=== PATIENT | male | born 1960 | race Caucasian/White ===

== ENCOUNTER 2019-03-03 22:11 | Inpatient (IN) ==
[2019-03-04] MEDS ORDERED: *HR* Dextrose 50 % in Water (Syg) 50 ML SYRINGE IVP PRN ×2 (01:23→14:20)
[2019-03-04] MEDS ORDERED: D5% in Water 1,000 ML IVC PRN ×2 (01:23→14:20)
[2019-03-04] MEDS ORDERED: Dextrose Gel 15 GM/37.5 ML TUBE PO PRN ×4 (01:23→14:20)
[2019-03-04] MEDS ORDERED: Naloxone 0.4 MG/ML INJ IVP PRN ×4 (01:23→14:20)
[2019-03-04] MEDS ORDERED: Ringers Solution, Lactated 1,000 ML IVC SCH (01:30)
[2019-03-04 02:16] LABS: Basophils # 0.1 K/mcL (0.0-0.2); Basophils % 0.4 %; Eosinophils # 0.3 K/mcL (0.0-0.6); Eosinophils % 2.5 %; Hematocrit 50.4 % (37.5-50.1); Hemoglobin 16.7 g/dL (12.9-16.9); Immature Granulocytes % 0.4 % (0-4); Lymphocytes # 2.2 K/mcL (0.6-4.6); Lymphocytes % 19.6 %; Mean Corpuscular HGB Conc 33.1 g/dL (31.6-35.5); Mean Corpuscular Hemoglobin 31.3 pg (28.0-33.3); Mean Corpuscular Volume 94.4 fL (83.0-100.0); Mean Platelet Volume 11.1 fL (9.4-12.4); Monocytes # 0.9 K/mcL (0.0-1.3); Monocytes % 8.1 %; Neutrophils # 7.8 K/mcL (1.6-8.9); Platelet Count 253 K/mcL (140-400); Red Blood Count 5.34 M/mcL (4.19-5.50); Red Cell Distribution Width 12.2 % (11.5-14.5); White Blood Count 11.3 K/mcL (4.3-11.1)
[2019-03-04 02:30] LABS: INR 1.2; Prothrombin Time 13.4 Seconds (9.4-12.1)
[2019-03-04 02:32] LABS: Bilirubin,Urine Negative (Negative); Blood,Urine Negative (Negative); Clarity,Urine Clear (Clear); Color,Urine Yellow (Yellow); Glucose,Urine (UA) 250 mg/dL (Normal); Ketones,Urine Negative (Negative); Leukocyte Esterase,Urine Negative (Negative); Nitrite,Urine Negative (Negative); Protein,Urine Trace mg/dL (Neg-Trace); Specific Gravity,Urine 1.015 (1.010-1.025); Urobilinogen,Urine Normal (Normal)
[2019-03-04 02:35] LABS: C-Reactive Protein 55 mg/L (Less than 10)
[2019-03-04 02:36] LABS: Troponin I < 0.03 ng/mL (< 0.04)
[2019-03-04 02:37] LABS: Alanine Aminotransferase 8 Units/L (7-52); Albumin 3.5 g/dL (3.5-5.7); Alkaline Phosphatase 59 Units/L (34-104); Aspartate Amino Transferase 7 Units/L (13-39); BUN/Creatinine Ratio 18 (6-26); Bilirubin,Total 0.5 mg/dL (0.3-1.0); Blood Urea Nitrogen 10 mg/dL (6-20); Calcium 8.9 mg/dL (8.6-10.3); Carbon Dioxide 21 mEq/L (23-29); Chloride 104 mEq/L (98-107); Chol/HDL Ratio 4.8 (0-4.9); Cholesterol 116 mg/dL (< 200); Globulin 3.4 g/dL (2.4-3.5); Glucose 160 mg/dL (70-105); HDL Cholesterol 24 mg/dL (40-59); LDL Cholesterol,Calculated 73 mg/dL (0-99); Magnesium 1.9 mg/dL (1.6-2.6); Osmolality,Calculated 274 (280-300); Potassium 4.3 mEq/L (3.5-5.1); Sodium 131 mEq/L (136-145); Total Protein 6.9 g/dL (6.4-8.9); Triglycerides 94 mg/dL (< 150); eGFR For African Americans > 60 (> 60); eGFR For Non-African Americans > 60 (> 60)
[2019-03-04] MEDS: *HR* Heparin 5,000 UNIT/ML VIAL SQ SCH ×2 (06:36→20:58)
[2019-03-04] MEDS: Piperacillin/Tazobactam 3.375 GM in 0.9 % Sodium Chloride Mini Bag 100 ML IVPB SCH ×2 (06:36→20:59)
[2019-03-04] MEDS: Insulin LISPRO 300 UNITS/3 ML VIAL SQ SCH ×3 (06:37→17:02)
[2019-03-04 07:09] LABS: Estimated Average Glucose 232 mg/dl
[2019-03-04] MEDS ORDERED: D5% in Lactated Ringers 1,000 ML IVC SCH ×2 (08:00→14:20)
[2019-03-04] MEDS ORDERED: Ondansetron 4 MG/2 ML VIAL IVP PRN ×2 (08:43→14:20)
[2019-03-04] MEDS ORDERED: Ondansetron 4 MG/2 ML VIAL ONE (08:54)
[2019-03-04] MEDS ORDERED: Morphine Sulfate 2 MG/ML SYRINGE IVP PRN ×2 (12:09→14:20)
[2019-03-04] MEDS ORDERED: *HR* HYDROcodone/Acet 5/325 mg TABLET PO PRN ×2 (12:09→14:20)
[2019-03-04] MEDS ORDERED: Lidocaine -MPF 2% 2 ML VIAL ONE (12:15)
[2019-03-04] MEDS ORDERED: *HR* Midazolam HCl 2 MG/2 ML VIAL ONE (12:16)
[2019-03-04] MEDS ORDERED: *HR* Propofol 200 MG/20 ML VIAL IVP ONE (12:16)
[2019-03-04] MEDS ORDERED: *HR* FentaNYL (PF) 100 MCG/2 ML VIAL ONE (12:16)
[2019-03-04] MEDS ORDERED: Lidocaine 1% 20 ML MDV ONE (12:19)
[2019-03-04] MEDS ORDERED: *HR* PHENYLEPHRINE 1,000 MCG/10 ML SYRINGE IVP ONE (13:21)
[2019-03-04] MEDS ORDERED: *HR* Labetalol 20 MG/4 ML SYRINGE IVP PRN (15:30)
[2019-03-04] MEDS ORDERED: Insulin LISPRO 300 UNITS/3 ML VIAL SQ SCH (18:00)
[2019-03-04] MEDS: Insulin DETEMIR 100 UNIT/ML X5UNITS SQ SCH (20:58)
[2019-03-05 05:35] LABS: Basophils % 0.2 %; Hematocrit 50.3 % (37.5-50.1); Hemoglobin 16.9 g/dL (12.9-16.9); Immature Granulocytes % 0.5 % (0-4); Lymphocytes # 1.6 K/mcL (0.6-4.6); Lymphocytes % 9.4 %; Mean Corpuscular HGB Conc 33.6 g/dL (31.6-35.5); Mean Corpuscular Hemoglobin 31.2 pg (28.0-33.3); Mean Platelet Volume 10.8 fL (9.4-12.4); Monocytes # 1.1 K/mcL (0.0-1.3); Monocytes % 6.4 %; Neutrophils # 13.7 K/mcL (1.6-8.9); Platelet Count 306 K/mcL (140-400); Red Blood Count 5.41 M/mcL (4.19-5.50); Red Cell Distribution Width 12.2 % (11.5-14.5); Segmented Neutrophils % 83.5 %; White Blood Count 16.4 K/mcL (4.3-11.1)
[2019-03-05] MEDS: Piperacillin/Tazobactam 3.375 GM in 0.9 % Sodium Chloride Mini Bag 100 ML IVPB SCH ×3 (05:37→22:45)
[2019-03-05] MEDS: *HR* Heparin 5,000 UNIT/ML VIAL SQ SCH ×3 (05:37→21:22)
[2019-03-05 05:51] LABS: BUN/Creatinine Ratio 13 (6-26); Blood Urea Nitrogen 8 mg/dL (6-20); Calcium 9.7 mg/dL (8.6-10.3); Carbon Dioxide 26 mEq/L (23-29); Chloride 97 mEq/L (98-107); Glucose 142 mg/dL (70-105); Osmolality,Calculated 277 (280-300); Potassium 4.3 mEq/L (3.5-5.1); Sodium 133 mEq/L (136-145); eGFR For African Americans > 60 (> 60); eGFR For Non-African Americans > 60 (> 60)
[2019-03-05] MEDS: Insulin LISPRO 300 UNITS/3 ML VIAL SQ SCH ×3 (07:51→17:30)
[2019-03-05] MEDS ORDERED: Aminoglycoside Consult 1 EACH MC ONE (08:33)
[2019-03-05] MEDS: Gabapentin 300 MG CAPSULE PO SCH ×2 (15:35→21:22)
[2019-03-05] MEDS: Insulin DETEMIR 100 UNIT/ML X5UNITS SQ SCH (21:22)
[2019-03-06 05:19] LABS: Basophils # 0.1 K/mcL (0.0-0.2); Basophils % 0.7 %; Eosinophils # 0.1 K/mcL (0.0-0.6); Eosinophils % 1.4 %; Hematocrit 50.8 % (37.5-50.1); Hemoglobin 17.4 g/dL (12.9-16.9); Immature Granulocytes % 0.5 % (0-4); Lymphocytes # 2.4 K/mcL (0.6-4.6); Lymphocytes % 23.1 %; Mean Corpuscular HGB Conc 34.3 g/dL (31.6-35.5); Mean Corpuscular Hemoglobin 31.6 pg (28.0-33.3); Mean Corpuscular Volume 92.2 fL (83.0-100.0); Mean Platelet Volume 11.3 fL (9.4-12.4); Monocytes % 9.8 %; Neutrophils # 6.7 K/mcL (1.6-8.9); Platelet Count 312 K/mcL (140-400); Red Blood Count 5.51 M/mcL (4.19-5.50); Red Cell Distribution Width 12.2 % (11.5-14.5); Segmented Neutrophils % 64.5 %; White Blood Count 10.3 K/mcL (4.3-11.1)
[2019-03-06 05:32] LABS: BUN/Creatinine Ratio 15 (6-26); Blood Urea Nitrogen 11 mg/dL (6-20); Calcium 9.4 mg/dL (8.6-10.3); Carbon Dioxide 28 mEq/L (23-29); Chloride 98 mEq/L (98-107); Glucose 77 mg/dL (70-105); Osmolality,Calculated 276 (280-300); Phosphorous 3.4 mg/dL (2.7-4.5); Potassium 3.7 mEq/L (3.5-5.1); Sodium 134 mEq/L (136-145); eGFR For African Americans > 60 (> 60); eGFR For Non-African Americans > 60 (> 60)
[2019-03-06] MEDS: Piperacillin/Tazobactam 3.375 GM in 0.9 % Sodium Chloride Mini Bag 100 ML IVPB SCH ×3 (06:21→22:18)
[2019-03-06] MEDS: *HR* Heparin 5,000 UNIT/ML VIAL SQ SCH ×3 (06:22→22:13)
[2019-03-06] MEDS: Aspirin Enteric Coated 81 MG Tablet PO SCH (08:51)
[2019-03-06] MEDS: Gabapentin 300 MG CAPSULE PO SCH ×3 (08:51→20:19)
[2019-03-06] MEDS: Insulin LISPRO 300 UNITS/3 ML VIAL SQ SCH ×3 (09:02→17:38)
[2019-03-06] MEDS ORDERED: *HR* Labetalol 20 MG/4 ML SYRINGE IVP PRN (09:38)
[2019-03-06] MEDS ORDERED: Isovue-370 500 ML BOTTLE IVP ONE (15:44)
[2019-03-06] MEDS: Insulin DETEMIR 100 UNIT/ML X5UNITS SQ SCH (22:13)
[2019-03-07] MEDS ORDERED: Acetaminophen IV 500 MG/50 ML INFUS..BTL IVPB ONE ×2 (00:22→20:08)
[2019-03-07] MEDS: Piperacillin/Tazobactam 3.375 GM in 0.9 % Sodium Chloride Mini Bag 100 ML IVPB SCH ×4 (05:47→22:41)
[2019-03-07] MEDS: *HR* Heparin 5,000 UNIT/ML VIAL SQ SCH ×4 (05:51→21:30)
[2019-03-07] MEDS: Aspirin Enteric Coated 81 MG Tablet PO SCH (08:34)
[2019-03-07] MEDS: Gabapentin 300 MG CAPSULE PO SCH ×3 (08:34→19:56)
[2019-03-07] MEDS: Insulin LISPRO 300 UNITS/3 ML VIAL SQ SCH ×3 (08:35→17:11)
[2019-03-07] MEDS: *HR* FentaNYL PATCH 25 MCG PATCH TD SCH (09:44)
[2019-03-07] MEDS: Acetaminophen 325 MG TABLET PO PRN ×2 (12:26→18:36)
[2019-03-07] MEDS: Insulin DETEMIR 100 UNIT/ML X5UNITS SQ SCH (19:57)
[2019-03-08] MEDS ORDERED: Acetaminophen IV 500 MG/50 ML INFUS..BTL IVPB ONE (03:18)
[2019-03-08 05:18] LABS: Basophils # 0.1 K/mcL (0.0-0.2); Basophils % 0.8 %; Eosinophils # 0.5 K/mcL (0.0-0.6); Eosinophils % 4.4 %; Hematocrit 46.3 % (37.5-50.1); Hemoglobin 15.9 g/dL (12.9-16.9); Immature Granulocytes % 0.6 % (0-4); Lymphocytes # 2.3 K/mcL (0.6-4.6); Lymphocytes % 20.4 %; Mean Corpuscular HGB Conc 34.3 g/dL (31.6-35.5); Mean Corpuscular Hemoglobin 31.3 pg (28.0-33.3); Mean Corpuscular Volume 91.1 fL (83.0-100.0); Mean Platelet Volume 10.9 fL (9.4-12.4); Monocytes # 1.2 K/mcL (0.0-1.3); Monocytes % 10.8 %; Neutrophils # 7.1 K/mcL (1.6-8.9); Platelet Count 296 K/mcL (140-400); Red Blood Count 5.08 M/mcL (4.19-5.50); Red Cell Distribution Width 12.4 % (11.5-14.5); White Blood Count 11.3 K/mcL (4.3-11.1)
[2019-03-08 05:40] LABS: BUN/Creatinine Ratio 17 (6-26); Blood Urea Nitrogen 12 mg/dL (6-20); Calcium 9.3 mg/dL (8.6-10.3); Carbon Dioxide 22 mEq/L (23-29); Chloride 100 mEq/L (98-107); Glucose 149 mg/dL (70-105); Magnesium 2.1 mg/dL (1.6-2.6); Osmolality,Calculated 273 (280-300); Phosphorous 3.3 mg/dL (2.7-4.5); Potassium 4.7 mEq/L (3.5-5.1); Sodium 130 mEq/L (136-145); eGFR For African Americans > 60 (> 60); eGFR For Non-African Americans > 60 (> 60)
[2019-03-08] MEDS: *HR* Heparin 5,000 UNIT/ML VIAL SQ SCH ×3 (05:57→21:55)
[2019-03-08] MEDS: Piperacillin/Tazobactam 3.375 GM in 0.9 % Sodium Chloride Mini Bag 100 ML IVPB SCH (05:58)
[2019-03-08] MEDS: Insulin LISPRO 300 UNITS/3 ML VIAL SQ SCH ×3 (07:56→16:35)
[2019-03-08] MEDS: Gabapentin 300 MG CAPSULE PO SCH ×3 (08:06→21:55)
[2019-03-08] MEDS: Aspirin Enteric Coated 81 MG Tablet PO SCH (08:06)
[2019-03-08 12:58] LABS: Albumin 3.8 g/dL (3.5-5.7); Albumin/Globulin Ratio 1.2 (1.1-2.2); Bilirubin,Direct 0.1 mg/dL (0.0-0.2); Bilirubin,Indirect 0.4 mg/dL (0.0-1.2); Bilirubin,Total 0.5 mg/dL (0.3-1.0); Globulin 3.3 g/dL (2.4-3.5); Total Protein 7.1 g/dL (6.4-8.9)
[2019-03-08] MEDS: Acetaminophen IV 1,000 MG/100 ML INFUS..BTL IVPB PRN (14:53)
[2019-03-08] MEDS: cefTRIAXone 2,000 MG in 0.9 % Sodium Chloride Mini Bag 100 ML IVPB SCH (16:33)
[2019-03-08] MEDS: metroNIDAZOLE 500 MG TABLET PO SCH (21:55)
[2019-03-08] MEDS: Insulin DETEMIR 100 UNIT/ML X5UNITS SQ SCH (21:56)
[2019-03-09] MEDS: *HR* Heparin 5,000 UNIT/ML VIAL SQ SCH ×3 (05:07→20:58)
[2019-03-09 05:50] LABS: Basophils # 0.1 K/mcL (0.0-0.2); Basophils % 0.5 %; Eosinophils # 0.4 K/mcL (0.0-0.6); Eosinophils % 3.7 %; Hematocrit 49.1 % (37.5-50.1); Hemoglobin 16.1 g/dL (12.9-16.9); Immature Granulocytes % 0.5 % (0-4); Lymphocytes # 1.8 K/mcL (0.6-4.6); Lymphocytes % 16.2 %; Mean Corpuscular HGB Conc 32.8 g/dL (31.6-35.5); Mean Corpuscular Hemoglobin 30.8 pg (28.0-33.3); Mean Corpuscular Volume 94.1 fL (83.0-100.0); Mean Platelet Volume 10.8 fL (9.4-12.4); Monocytes # 1.1 K/mcL (0.0-1.3); Monocytes % 10.3 %; Neutrophils # 7.6 K/mcL (1.6-8.9); Platelet Count 303 K/mcL (140-400); Red Blood Count 5.22 M/mcL (4.19-5.50); Red Cell Distribution Width 12.3 % (11.5-14.5); Segmented Neutrophils % 68.8 %; White Blood Count 11.1 K/mcL (4.3-11.1)
[2019-03-09 06:10] LABS: BUN/Creatinine Ratio 12 (6-26); Blood Urea Nitrogen 8 mg/dL (6-20); Calcium 9.7 mg/dL (8.6-10.3); Carbon Dioxide 26 mEq/L (23-29); Chloride 99 mEq/L (98-107); Glucose 186 mg/dL (70-105); Magnesium 2.1 mg/dL (1.6-2.6); Osmolality,Calculated 283 (280-300); Phosphorous 3.2 mg/dL (2.7-4.5); Potassium 4.5 mEq/L (3.5-5.1); Sodium 135 mEq/L (136-145); eGFR For African Americans > 60 (> 60); eGFR For Non-African Americans > 60 (> 60)
[2019-03-09] MEDS: Gabapentin 300 MG CAPSULE PO SCH ×3 (09:16→20:58)
[2019-03-09] MEDS: metroNIDAZOLE 500 MG TABLET PO SCH ×3 (09:16→20:57)
[2019-03-09] MEDS: Aspirin Enteric Coated 81 MG Tablet PO SCH (09:16)
[2019-03-09] MEDS: *HR* LORazepam 2 MG/ML VIAL IVP PRN (10:27)
[2019-03-09] MEDS: Insulin LISPRO 300 UNITS/3 ML VIAL SQ SCH ×3 (13:06→17:12)
[2019-03-09] MEDS: Acetaminophen IV 1,000 MG/100 ML INFUS..BTL IVPB PRN (14:59)
[2019-03-09] MEDS: cefTRIAXone 2,000 MG in 0.9 % Sodium Chloride Mini Bag 100 ML IVPB SCH (16:36)
[2019-03-09] MEDS: Insulin DETEMIR 100 UNIT/ML X5UNITS SQ SCH (20:57)
[2019-03-10] MEDS: Acetaminophen IV 1,000 MG/100 ML INFUS..BTL IVPB PRN ×2 (02:19→14:49)
[2019-03-10] MEDS: *HR* LORazepam 2 MG/ML VIAL IVP PRN (02:19)
[2019-03-10 02:46] LABS: Basophils # 0.1 K/mcL (0.0-0.2); Basophils % 0.6 %; Eosinophils # 0.6 K/mcL (0.0-0.6); Eosinophils % 4.9 %; Hematocrit 46.7 % (37.5-50.1); Hemoglobin 15.5 g/dL (12.9-16.9); Immature Granulocytes % 0.4 % (0-4); Lymphocytes # 2.1 K/mcL (0.6-4.6); Lymphocytes % 18.4 %; Mean Corpuscular HGB Conc 33.2 g/dL (31.6-35.5); Mean Corpuscular Hemoglobin 30.8 pg (28.0-33.3); Mean Corpuscular Volume 92.8 fL (83.0-100.0); Mean Platelet Volume 10.8 fL (9.4-12.4); Monocytes # 1.2 K/mcL (0.0-1.3); Monocytes % 10.5 %; Neutrophils # 7.6 K/mcL (1.6-8.9); Platelet Count 288 K/mcL (140-400); Red Blood Count 5.03 M/mcL (4.19-5.50); Red Cell Distribution Width 12.5 % (11.5-14.5); Segmented Neutrophils % 65.2 %; White Blood Count 11.6 K/mcL (4.3-11.1)
[2019-03-10 03:02] LABS: BUN/Creatinine Ratio 14 (6-26); Blood Urea Nitrogen 12 mg/dL (6-20); Calcium 9.3 mg/dL (8.6-10.3); Carbon Dioxide 23 mEq/L (23-29); Chloride 98 mEq/L (98-107); Glucose 338 mg/dL (70-105); Osmolality,Calculated 283 (280-300); Phosphorous 3.2 mg/dL (2.7-4.5); Potassium 4.3 mEq/L (3.5-5.1); Sodium 130 mEq/L (136-145); eGFR For African Americans > 60 (> 60); eGFR For Non-African Americans > 60 (> 60)
[2019-03-10] MEDS: Insulin LISPRO 300 UNITS/3 ML VIAL SQ SCH ×4 (06:40→21:32)
[2019-03-10] MEDS: *HR* Heparin 5,000 UNIT/ML VIAL SQ SCH ×3 (06:40→21:42)
[2019-03-10] MEDS: Gabapentin 300 MG CAPSULE PO SCH ×3 (08:51→21:42)
[2019-03-10] MEDS: Aspirin Enteric Coated 81 MG Tablet PO SCH (08:51)
[2019-03-10] MEDS ORDERED: Heparin 1,000 UNITS/500 mL 0 ML ONE (08:54)
[2019-03-10] MEDS ORDERED: Isovue-300 150 ML INFUS..BTL ONE (08:54)
[2019-03-10] MEDS ORDERED: *HR* Heparin 10,000 UNIT/10 ML VIAL ONE (08:54)
[2019-03-10] MEDS: metroNIDAZOLE 500 MG TABLET PO SCH ×3 (08:55→21:42)
[2019-03-10] MEDS ORDERED: 0.9 % Sodium Chloride 1,000 ML ONE ×2 (08:55→09:18)
[2019-03-10] MEDS ORDERED: *HR* Midazolam HCl 2 MG/2 ML VIAL ONE (09:18)
[2019-03-10] MEDS: *HR* FentaNYL PATCH 25 MCG PATCH TD SCH (14:50)
[2019-03-10] MEDS: cefTRIAXone 2,000 MG in 0.9 % Sodium Chloride Mini Bag 100 ML IVPB SCH (17:36)
[2019-03-10] MEDS: Insulin DETEMIR 100 UNIT/ML X5UNITS SQ SCH (21:52)
[2019-03-11] MEDS: Acetaminophen IV 1,000 MG/100 ML INFUS..BTL IVPB PRN ×2 (00:08→10:02)
[2019-03-11] MEDS: *HR* Heparin 5,000 UNIT/ML VIAL SQ SCH ×3 (05:09→21:43)
[2019-03-11] MEDS: Gabapentin 300 MG CAPSULE PO SCH ×3 (08:55→21:43)
[2019-03-11] MEDS: metroNIDAZOLE 500 MG TABLET PO SCH (08:55)
[2019-03-11] MEDS: Aspirin Enteric Coated 81 MG Tablet PO SCH (08:55)
[2019-03-11] MEDS: Insulin LISPRO 300 UNITS/3 ML VIAL SQ SCH ×4 (08:56→21:47)
[2019-03-11] MEDS: cefTRIAXone 2,000 MG in 0.9 % Sodium Chloride Mini Bag 100 ML IVPB SCH (16:24)
[2019-03-11] MEDS: Insulin DETEMIR 100 UNIT/ML X5UNITS SQ SCH (21:48)
[2019-03-12 05:01] LABS: Hematocrit 45.9 % (37.5-50.1); Hemoglobin 15.5 g/dL (12.9-16.9); Mean Corpuscular HGB Conc 33.8 g/dL (31.6-35.5); Mean Corpuscular Hemoglobin 30.9 pg (28.0-33.3); Mean Corpuscular Volume 91.6 fL (83.0-100.0); Mean Platelet Volume 10.4 fL (9.4-12.4); Platelet Count 295 K/mcL (140-400); Red Blood Count 5.01 M/mcL (4.19-5.50); Red Cell Distribution Width 12.7 % (11.5-14.5); White Blood Count 12.6 K/mcL (4.3-11.1)
[2019-03-12] MEDS: *HR* Heparin 5,000 UNIT/ML VIAL SQ SCH ×3 (05:11→19:40)
[2019-03-12 05:21] LABS: BUN/Creatinine Ratio 15 (6-26); Blood Urea Nitrogen 10 mg/dL (6-20); Calcium 9.4 mg/dL (8.6-10.3); Carbon Dioxide 26 mEq/L (23-29); Chloride 100 mEq/L (98-107); Glucose 150 mg/dL (70-105); Osmolality,Calculated 276 (280-300); Potassium 4.2 mEq/L (3.5-5.1); Sodium 132 mEq/L (136-145); eGFR For African Americans > 60 (> 60); eGFR For Non-African Americans > 60 (> 60)
[2019-03-12] MEDS: Insulin LISPRO 300 UNITS/3 ML VIAL SQ SCH ×4 (08:53→19:43)
[2019-03-12] MEDS: Aspirin Enteric Coated 81 MG Tablet PO SCH (08:55)
[2019-03-12] MEDS: Gabapentin 300 MG CAPSULE PO SCH ×3 (08:55→19:39)
[2019-03-12] MEDS ORDERED: Vancomycin 1,000 MG, Sodium Chloride IRRigation 1,000 ML IR ONE ×2 (11:00→19:00)
[2019-03-12] MEDS: cefTRIAXone 2,000 MG in 0.9 % Sodium Chloride Mini Bag 100 ML IVPB SCH (16:25)
[2019-03-12] MEDS: Insulin DETEMIR 100 UNIT/ML X5UNITS SQ SCH (19:45)
[2019-03-12] MEDS ORDERED: Tetracaine/PF 20 MG/2 ML AMPUL ONE (20:49)
[2019-03-12] MEDS ORDERED: Ropivacaine/PF 0.5% 30 ML VIAL ONE (20:49)
[2019-03-12] MEDS ORDERED: Metoclopramide 10 MG/2 ML VIAL ONE (20:49)
[2019-03-12] MEDS ORDERED: Famotidine 20 MG/2 ML VIAL ONE (20:49)
[2019-03-12] MEDS ORDERED: *HR* Midazolam HCl 5 MG/5 ML VIAL IVP ONE (20:50)
[2019-03-12] MEDS ORDERED: Lidocaine -MPF 4% 5 ML AMPUL ONE (20:50)
[2019-03-12] MEDS ORDERED: *HR* FentaNYL (PF) 100 MCG/2 ML VIAL ONE (20:51)
[2019-03-12] MEDS ORDERED: Ondansetron 4 MG/2 ML VIAL ONE (21:54)
[2019-03-12] MEDS ORDERED: *HR* EPINEPHrine 1 MG/10 ML SYRINGE ONE (21:56)
[2019-03-12] MEDS ORDERED: Ringers Solution, Lactated 1,000 ML ONE (23:05)
[2019-03-12] MEDS ORDERED: *HR* Labetalol 20 MG/4 ML SYRINGE IVP PRN (23:26)
[2019-03-12] MEDS ORDERED: *HR* HYDROcodone/Acet 5/325 mg TABLET PO PRN ×2 (23:26)
[2019-03-12] MEDS ORDERED: *HR* Dextrose 50 % in Water (Syg) 50 ML SYRINGE IVP PRN (23:26)
[2019-03-12] MEDS ORDERED: Ondansetron 4 MG/2 ML VIAL IVP PRN (23:26)
[2019-03-12] MEDS ORDERED: D5% in Water 1,000 ML IVC PRN (23:26)
[2019-03-12] MEDS ORDERED: Naloxone 0.4 MG/ML INJ IVP PRN (23:26)
[2019-03-12] MEDS ORDERED: *HR* OxyCODONE Immed Rel 5 MG TABLET PO PRN ×2 (23:26)
[2019-03-12] MEDS ORDERED: Dextrose Gel 15 GM/37.5 ML TUBE PO PRN ×2 (23:26)
[2019-03-12] MEDS ORDERED: *HR* LORazepam 2 MG/ML VIAL IVP PRN (23:26)
[2019-03-12] MEDS ORDERED: Acetaminophen 325 MG TABLET PO PRN ×2 (23:26)
[2019-03-13 04:47] LABS: Hematocrit 41.6 % (37.5-50.1); Mean Corpuscular HGB Conc 32.5 g/dL (31.6-35.5); Mean Corpuscular Volume 95.6 fL (83.0-100.0); Mean Platelet Volume 10.6 fL (9.4-12.4); Platelet Count 253 K/mcL (140-400); Red Blood Count 4.35 M/mcL (4.19-5.50); Red Cell Distribution Width 12.8 % (11.5-14.5)
[2019-03-13 04:48] LABS: Hemoglobin 13.5 g/dL (12.9-16.9)
[2019-03-13 05:10] LABS: BUN/Creatinine Ratio 14 (6-26); Blood Urea Nitrogen 13 mg/dL (6-20); Calcium 8.9 mg/dL (8.6-10.3); Carbon Dioxide 26 mEq/L (23-29); Chloride 100 mEq/L (98-107); Glucose 330 mg/dL (70-105); Osmolality,Calculated 287 (280-300); Potassium 4.3 mEq/L (3.5-5.1); Sodium 132 mEq/L (136-145); eGFR For African Americans > 60 (> 60); eGFR For Non-African Americans > 60 (> 60)
[2019-03-13] MEDS: *HR* Heparin 5,000 UNIT/ML VIAL SQ SCH ×3 (05:48→23:32)
[2019-03-13] MEDS ORDERED: cefTRIAXone 2,000 MG in 0.9 % Sodium Chloride Mini Bag 100 ML IVPB SCH (16:00)
[2019-03-13] MEDS ORDERED: Insulin DETEMIR 100 UNIT/ML X5UNITS SQ SCH (21:00)
[2019-03-13] MEDS: Gabapentin 300 MG CAPSULE PO SCH ×2 (22:18→23:31)
[2019-03-13] MEDS: Insulin LISPRO 300 UNITS/3 ML VIAL SQ SCH ×2 (22:20→23:30)
[2019-03-13] MEDS: *HR* HYDROmorphone (PF) 1 MG/ML SYRINGE IVP PRN (22:57)
[2019-03-13] MEDS: Aspirin Enteric Coated 81 MG Tablet PO SCH (23:30)
[2019-03-13] MEDS: *HR* FentaNYL PATCH 25 MCG PATCH TD SCH (23:31)
[2019-03-14] MEDS: *HR* Heparin 5,000 UNIT/ML VIAL SQ SCH ×3 (05:57→21:57)
[2019-03-14] MEDS: Aspirin Enteric Coated 81 MG Tablet PO SCH (09:18)
[2019-03-14] MEDS: Gabapentin 300 MG CAPSULE PO SCH ×3 (09:18→21:57)
[2019-03-14] MEDS: Insulin LISPRO 300 UNITS/3 ML VIAL SQ SCH ×4 (09:22→22:01)
[2019-03-14] MEDS: Insulin DETEMIR 100 UNIT/ML X5UNITS SQ SCH (21:58)
[2019-03-14] MEDS: *HR* HYDROmorphone (PF) 1 MG/ML SYRINGE IVP PRN (23:31)
[2019-03-15] MEDS: *HR* Heparin 5,000 UNIT/ML VIAL SQ SCH ×3 (05:23→21:57)
[2019-03-15] MEDS: Gabapentin 300 MG CAPSULE PO SCH ×3 (08:31→21:56)
[2019-03-15] MEDS: Aspirin Enteric Coated 81 MG Tablet PO SCH (08:31)
[2019-03-15] MEDS: Insulin LISPRO 300 UNITS/3 ML VIAL SQ SCH ×4 (08:32→21:44)
[2019-03-15] MEDS: Insulin DETEMIR 100 UNIT/ML X5UNITS SQ SCH (21:57)
[2019-03-16] MEDS: *HR* Heparin 5,000 UNIT/ML VIAL SQ SCH ×3 (05:17→21:23)
[2019-03-16] MEDS: Insulin LISPRO 300 UNITS/3 ML VIAL SQ SCH ×4 (07:46→21:21)
[2019-03-16] MEDS: Gabapentin 300 MG CAPSULE PO SCH ×3 (07:50→19:57)
[2019-03-16] MEDS: *HR* FentaNYL PATCH 25 MCG PATCH TD SCH (07:51)
[2019-03-16] MEDS: Aspirin Enteric Coated 81 MG Tablet PO SCH (07:51)
[2019-03-16] MEDS: Insulin DETEMIR 100 UNIT/ML X5UNITS SQ SCH (21:23)
[2019-03-17] MEDS: *HR* Heparin 5,000 UNIT/ML VIAL SQ SCH ×2 (06:03→14:09)
[2019-03-17] MEDS: Insulin LISPRO 300 UNITS/3 ML VIAL SQ SCH ×2 (07:22→12:29)
[2019-03-17] MEDS: Gabapentin 300 MG CAPSULE PO SCH ×2 (09:12→14:08)
[2019-03-17] MEDS: Aspirin Enteric Coated 81 MG Tablet PO SCH (09:13)
[2019-03-17 16:22] VITALS: BP 134/71
== END 2019-03-17 17:39 | disposition home health service (06) | DRG 853 ==
LOC: 3NENU → SUATTDRO 03-04 01:23
PROVIDERS: ADMIT Internal Medicine; ATTEND Internal Medicine

== ENCOUNTER 2019-04-05 23:11 | Inpatient (IN) ==
[2019-04-06] MEDS ORDERED: *HR* Heparin 5,000 UNIT/ML VIAL IVP ONE (01:26)
[2019-04-06] MEDS ORDERED: *HR* Heparin 5,000 UNIT/ML VIAL IVP PRN ×2 (01:26)
[2019-04-06] MEDS ORDERED: Heparin 25,000 UNIT/250 ML D5W 25,000 UNIT/250 ML IV.SOLN IVC SCH (01:30)
[2019-04-06 02:03] LABS: Mean Platelet Volume 10.8 fL (9.4-12.4)
[2019-04-06 02:05] LABS: Hematocrit 37.9 % (37.5-50.1); Hemoglobin 13.3 g/dL (12.9-16.9); Mean Corpuscular HGB Conc 35.1 g/dL (31.6-35.5); Mean Corpuscular Hemoglobin 29.3 pg (28.0-33.3); Mean Corpuscular Volume 83.5 fL (83.0-100.0); Platelet Count 414 K/mcL (140-400); Red Blood Count 4.54 M/mcL (4.19-5.50)
[2019-04-06 02:07] LABS: White Blood Count 37.5 K/mcL (4.3-11.1)
[2019-04-06 02:12] LABS: INR 1.3; Prothrombin Time 14.2 Seconds (9.4-12.1)
[2019-04-06 02:14] LABS: Heparin anti-factor XA UFH 1.09 IU/mL (0.30-0.70)
[2019-04-06] MEDS ORDERED: Aminoglycoside Consult 1 EACH MC ONE (02:16)
[2019-04-06 02:23] LABS: Calcium 8.8 mg/dL (8.6-10.3); Potassium 5.4 mEq/L (3.5-5.1)
[2019-04-06] MEDS ORDERED: Naloxone 0.4 MG/ML INJ IVP PRN (02:42)
[2019-04-06] MEDS ORDERED: Dextrose Gel 15 GM/37.5 ML TUBE PO PRN ×2 (02:47)
[2019-04-06] MEDS ORDERED: D5% in Water 1,000 ML IVC PRN (02:47)
[2019-04-06] MEDS ORDERED: *HR* Dextrose 50 % in Water (Syg) 50 ML SYRINGE IVP PRN (02:47)
[2019-04-06 04:01] LABS: Calcium 8.7 mg/dL (8.6-10.3); Potassium 5.3 mEq/L (3.5-5.1)
[2019-04-06] MEDS ORDERED: 0.9 % Sodium Chloride 1,000 ML IVC ONE (05:36)
[2019-04-06] MEDS ORDERED: Insulin LISPRO 300 UNITS/3 ML VIAL SQ SCH (06:00)
[2019-04-06] MEDS ORDERED: Piperacillin/Tazobactam 3.375 GM in 0.9 % Sodium Chloride Mini Bag 100 ML IVPB SCH (06:00)
[2019-04-06 07:19] LABS: Calcium 8.5 mg/dL (8.6-10.3)
[2019-04-06 09:51] LABS: Uric Acid 16.2 mg/dL (2.3-7.6)
[2019-04-06] MEDS: Insulin LISPRO 300 UNITS/3 ML VIAL SQ SCH ×2 (10:22→12:28)
[2019-04-06 12:34] LABS: Bilirubin,Urine Moderate (Negative); Blood,Urine Large (Negative); Clarity,Urine Cloudy (Clear); Glucose,Urine (UA) Normal (Normal); Ketones,Urine Trace mg/dL (Negative); Leukocyte Esterase,Urine Small (Negative); Nitrite,Urine Positive (Negative); Protein,Urine 30 mg/dL (Neg-Trace); Specific Gravity,Urine 1.022 (1.010-1.025); Urobilinogen,Urine Normal (Normal)
[2019-04-06 12:36] LABS: Bacteria,Urine None Seen per hpf (None-Few); RBC,Urine 30-50 per hpf (0-3); Squamous Epithelial Cell,Urine Many per lpf (None-Few); WBC,Urine 15-30 per hpf (0-3)
[2019-04-06 12:38] LABS: Color,Urine Brown (Yellow)
[2019-04-06 12:55] LABS: Hyaline Casts,Urine Few per lpf (None-Few)
[2019-04-06] MEDS ORDERED: Atropine Sulfate 1% 40 DROP/2 ML BOTTLE SL PRN (14:54)
[2019-04-06] MEDS: *HR* FentaNYL (PF) 100 MCG/2 ML VIAL IVP PRN ×3 (16:52→23:24)
[2019-04-06] MEDS: *HR* LORazepam 2 MG/ML VIAL IVP PRN ×3 (17:45→22:37)
[2019-04-06 20:05] VITALS: BP 133/71
== END 2019-04-07 02:17 | disposition expired | DRG 872 ==
LOC: 2NENU → SUATTDRO 23:16
PROVIDERS: ADMIT Family Medicine; ATTEND Internal Medicine